=== PATIENT | female | born 1960 | race Caucasian/White ===

== ENCOUNTER 2017-09-04 06:38 | Observation (INO) | payer OTHER ==
[2017-09-04] MEDS ORDERED: SOD CHLORIDE 0.9% 1,000 ML IV (09:00)
[2017-09-04] MEDS: CEFAZOLIN 1 GM/50 ML (PMX) 50 ML IVPB (11:00)
[2017-09-04] MEDS ORDERED: FENTAnyl 50 MCG/ML VIAL ×2 (11:26→11:49)
[2017-09-04] MEDS ORDERED: MIDAZOLAM 1 MG/ML 2 ML INJ (11:26)
[2017-09-04] MEDS ORDERED: PROPOFOL 20 ML (11:26)
[2017-09-04] MEDS ORDERED: METOCLOPRAMIDE 10 MG INJ (11:27)
[2017-09-04] MEDS ORDERED: CEFAZOLIN 1 GM INJ (11:37)
[2017-09-04] MEDS ORDERED: HYDROmorphONE 2 MG/ML SYG (11:37)
[2017-09-04] MEDS ORDERED: ACETAMINOPHEN 1000MG/100ML IV 100 ML (11:47)
[2017-09-04] MEDS ORDERED: ONDANSETRON 4 MG INJ (11:47)
[2017-09-04] MEDS: ISOSULFAN BLUE 1% 5 ML INJ SC (12:10)
[2017-09-04] MEDS ORDERED: ACETAMINOPHEN 1000MG/100ML IV 100 ML IVPB (13:30)
[2017-09-04] MEDS ORDERED: ONDANSETRON 4 MG INJ IV (13:30)
[2017-09-04] MEDS: D5W-0.45 NACL + KCL 20 MEQ 1,000 ML IV ×3 (15:51→23:46)
[2017-09-04] MEDS: morphine 2 MG INJ IV ×2 (15:51→20:39)
[2017-09-04] MEDS ORDERED: ALBUTEROL/IPRATROPIUM (NEB) 3 ML AMP HHN (17:00)
[2017-09-04] MEDS: NICOTINE (21 MG/24 HR) PATCH TRANSDERM (18:20)
[2017-09-04] MEDS: ALBUTEROL/IPRATROPIUM (NEB) 3 ML AMP HHN (19:28)
[2017-09-04] MEDS: TOPIRAMATE 100 MG TAB PO (20:38)
[2017-09-04] MEDS: ZIPRASIDONE 20 MG CAP PO (20:38)
[2017-09-04] MEDS: ATORVASTATIN 40 MG TAB PO (20:39)
[2017-09-04] MEDS: traZODone 100 MG TAB PO (20:39)
[2017-09-05] MEDS: D5W-0.45 NACL + KCL 20 MEQ 1,000 ML IV ×3 (05:11→16:51)
[2017-09-05] MEDS: PANTOPRAZOLE (EC) 40 MG TAB PO (06:00)
[2017-09-05 06:12] LABS: ADD MAN DIFF? NO
[2017-09-05 06:17] LABS: BASOPHILS % 0.5 % (0.0-2.0); EOSINOPHILS # 0.2 10^3/ul (0.0-0.5); EOSINOPHILS % 3.7 % (0.0-7.0); HEMATOCRIT 34.9 % (37.0-47.0); HEMOGLOBIN 11.7 g/dl (12.0-16.0); LYMPHOCYTES # 2.4 10^3/ul (0.8-2.9); LYMPHOCYTES % 40.4 % (15.0-51.0); MEAN CORPUSCULAR HEMOGLOBIN 33.2 pg (29.0-33.0); MEAN CORPUSCULAR HGB CONC 33.5 g/dl (32.0-37.0); MEAN CORPUSCULAR VOLUME 99.1 fl (82.0-101.0); MEAN PLATELET VOLUME 9.8 fl (7.4-10.4); MONOCYTE # 0.5 10^3/ul (0.3-0.9); MONOCYTES % 9.1 % (0.0-11.0); NEUTROPHIL # 2.7 10^3/ul (1.6-7.5); NEUTROPHILS % 46.1 % (39.0-77.0); PLATELET COUNT 204 10^3/UL (140-415); RED BLOOD COUNT 3.52 10^6/ul (4.20-5.40); RED CELL DISTRIBUTION WIDTH 13.5 % (11.5-14.5)
[2017-09-05 06:17] LABS: WHITE BLOOD COUNT 5.9 10^3/ul (4.8-10.8)
[2017-09-05 06:37] LABS: ANION GAP 6 (8-16); BLOOD UREA NITROGEN 9 mg/dl (7-20); CALCIUM 7.6 mg/dl (8.4-10.2); CARBON DIOXIDE 25 mmol/L (21-31); CHLORIDE 116 mmol/L (97-110); CREATININE 0.76 mg/dl (0.44-1.00); GLUCOSE 297 mg/dl (70-220); SODIUM 142 mmol/L (135-144)
[2017-09-05] MEDS: ALBUTEROL/IPRATROPIUM (NEB) 3 ML AMP HHN ×2 (08:07→14:08)
[2017-09-05] MEDS: ZIPRASIDONE 20 MG CAP PO (08:14)
[2017-09-05] MEDS: ASPIRIN 81 MG TAB PO (08:14)
[2017-09-05] MEDS: BUPROPION (XL) 150 MG TAB PO (08:14)
[2017-09-05] MEDS: NICOTINE (21 MG/24 HR) PATCH TRANSDERM (08:15)
[2017-09-05] MEDS: morphine 2 MG INJ IV (08:16)
[2017-09-05] MEDS ORDERED: BUPROPION (XL) 150 MG TAB PO (09:00)
== END 2017-09-05 19:50 | disposition home or self-care (01) ==
LOC: SDS 06:38 → MS2 13:13
DX: C50.911 Malignant neoplasm of unspecified site of right female breast (principal); J44.9 Chronic obstructive pulmonary disease, unspecified; E78.5 Hyperlipidemia, unspecified; F31.9 Bipolar disorder, unspecified; F43.10 Post-traumatic stress disorder, unspecified; M81.0 Age-related osteoporosis without current pathological fracture; F17.200 Nicotine dependence, unspecified, uncomplicated
CPT/HCPCS: 19301; 80048; 85025; 88309; 88331; 94640; 94664

== ENCOUNTER 2018-06-23 10:02 | Emergency (ER) | payer OTHER ==
[2018-06-23 12:12] LABS: URINE PH (Dip) POC 8.5 (5.0-8.5)
[2018-06-23 12:12] LABS: URINE BLOOD (Dip) POC Negative (NEGATIVE); URINE GLUCOSE (Dip) POC Negative (NEGATIVE); URINE KETONES (Dip) POC Negative (NEGATIVE); URINE LEUKOCYTE EST (Dip) POC Trace (NEGATIVE); URINE NITRITE (Dip) POC Positive (NEGATIVE); URINE TOTAL PROTEIN POC Negative (NEGATIVE)
[2018-06-23] MEDS: ALBUTEROL/IPRATROPIUM (NEB) 3 ML AMP HHN (12:32)
[2018-06-23] MEDS: predniSONE 20 MG TAB PO (13:27)
== END 2018-06-23 13:54 | disposition home or self-care (01) ==
LOC: FTE 13:54
DX: J45.901 Unspecified asthma with (acute) exacerbation (principal); Z85.3 Personal history of malignant neoplasm of breast; Z79.82 Long term (current) use of aspirin
CPT/HCPCS: 71046; 81003; 94664; 99283-25